=== PATIENT | female | born 1945 | race Caucasian/White ===

== ENCOUNTER 2022-07-29 18:33 | Emergency (ER) | payer MEDICARE, OTHER ==
[2022-07-29 19:50] LABS: HEMOGLOBIN 12.1 gm/dl (12.3-15.3); RED BLOOD COUNT 4.14 M/UL (4.00-5.10); WHITE BLOOD COUNT 11.2 K/UL (4.5-11.0)
[2022-07-29 21:34] LABS: BUN/CREATININE RATIO 31 (0-10)
== END 2022-07-30 09:10 | disposition home or self-care (01) ==
LOC: ER1 18:33
PROVIDERS: Preventive Medicine Occupational Medicine
DX: F03.90 Unspecified dementia, unspecified severity, without behavioral disturbance, psychotic disturbance, mood disturbance, and anxiety (principal); R45.1 Restlessness and agitation
CPT/HCPCS: 36600; 51701; 71045; 80053; 80307; 81001; 82009; 82140; 82550; 82553; 82803; 83690; 83880; 84484; 85025; 85652; 86140; 87077; 87086; 87186; 93005; 96361; 96372; 96374; 99284; G0480; J0696; J3486